=== PATIENT | male | born 1990 | race Caucasian/White ===

== ENCOUNTER 2017-03-17 10:37 | Emergency (ER) | payer OTHER ==
[2017-03-17 10:43] VITALS: BP 122/79
--- NOTE | 2017-03-17 11:38 | ED Physician Documentation ---
PD HPI BACK INJURY - Stated complaint Stated Complaint: BACK PX - History obtained from History obtained from: Patient - History of Present Illness Location: Right Type of injury: Twist (he reached out for light object and felt pain right medial scapular area. Did catch his breath at the time as it hurt to breath. Hurting to move arm and shoulder still.) Timing - onset: Yesterday Timing - details: Abrupt onset, Still present Quality: Pain, Sharp Improved by: Rest Worsened by: Moving Associated symptoms: Other (no cough nor URI symptoms). No: Fever, Weakness, Numbness Similar symptoms before: Has not had sx before Recently seen: Not recently seen Review of Systems Constitutional: denies: Fever, Chills Nose: denies: Rhinorrhea / runny nose, Congestion Throat: denies: Sore throat Cardiac: denies: Chest pain / pressure, Palpitations Respiratory: denies: Dyspnea, Cough Skin: denies: Rash, Lesions Musculoskeletal: reports: Back pain. denies: Neck pain PD PAST MEDICAL HISTORY - Past Medical History Past Medical History: Yes Cardiovascular: None Respiratory: None Psych: Depression, Anxiety - Past Surgical History Past Surgical History: Yes - Present Medications Home Medications: Ambulatory Orders Medication Instructions Recorded Confirmed Citalopram [CeleXA] 0 mg PO DAILY 03/17/17 03/17/17 Dexamethasone [Decadron] 4 mg PO DAILY #5 tablet 03/17/17 Ibuprofen [Motrin] 600 mg PO TID #20 tab 03/17/17 Methocarbamol [Robaxin] 500 mg PO Q6H PRN #25 tablet 03/17/17 Tramadol HCl 50 mg PO Q6H PRN #20 tablet 03/17/17 Trazodone HCl 0 mg PO DAILY 03/17/17 03/17/17 - Allergies Allergies/Adverse Reactions: Allergies Allergy/AdvReac Type Severity Reaction Status Date / Time No Known Drug Allergies Allergy Verified 03/17/17 10:42 - Social History Does the pt smoke?: No Smoking Status: Never smoker - Immunizations Immunizations are current?: Yes PD ED PE NORMAL - Vitals Vital signs reviewed: Yes - General General: Alert and oriented X 3, No acute distress, Well developed/nourished - HEENT HEENT: Ears normal, Pharynx benign - Neck Neck: Supple, no meningeal sign, No adenopathy - Cardiac Cardiac: RRR, No murmur - Respiratory Respiratory: Clear bilaterally, Other (tender medial scapular area without rash nor sores. ) - Abdomen Abdomen: Soft, Non tender - Derm Derm: Normal color, Warm and dry, No rash Results - Vitals Vitals: Oxygen O2 Source Room air - Rads (name of study) chest Radiology: Prelim report reviewed, EMP read contemporaneously (no acute process) PD MEDICAL DECISION MAKING - ED course Complexity details: reviewed results, considered differential, d/w patient Departure - Departure Disposition: Home, Self Care Clinical Impression: Thoracic myofascial strain Qualifiers: Encounter type: initial encounter Qualified Code(s): S29.019A - Strain of muscle and tendon of unspecified wall of thorax, initial encounter Condition: Stable Record reviewed to determine appropriate education?: Yes Instructions: ED Sprain Thoracic Spine Follow-Up: MILTON Chahal [Provider Group] Prescriptions: Dexamethasone [Decadron] 4 mg PO DAILY #5 tablet Ibuprofen [Motrin] 600 mg PO TID #20 tab Methocarbamol [Robaxin] 500 mg PO Q6H PRN #25 tablet PRN Reason: Spasms Tramadol HCl 50 mg PO Q6H PRN #20 tablet PRN Reason: Pain Comments: Limited use of the shoulder girdle and upper back, which means minimal lifting, push pull, overhead reaching for several days due to presumed muscle pain. Your x-ray appears normal. Resume this is a muscle strain with the pain. Recheck if other symptoms develop. Otherwise use ibuprofen 2-3 times a day and Decadron daily for 5 days for inflammation. Add Robaxin if needed for spasms and stiffness. Add Tylenol or tramadol or both if needed for pains unrelieved by the NSAIDs. Follow-up with your primary care in 2-3 days if not better. Forms: Activity restrictions Discharge Date/Time: 03/17/17 13:09
[2017-03-17] MEDS ORDERED: ACETAMINOPHEN 325 MG TABLET PO STA (12:05)
[2017-03-17] MEDS: IBUPROFEN 600 MG TABLET PO STA ×2 (12:09)
--- NOTE | 2017-03-17 12:32 | XRAY Preliminary Report ---
Exam: XR CHEST 2 VIEW PA/LAT IMPRESSION: Normal 2-view chest radiography. [facility] SITE ID: [id number]
--- NOTE | 2017-03-17 12:32 | XRAY Report ---
EXAM: CHEST RADIOGRAPHY EXAM DATE: 03/17/2017 12:15 PM. CLINICAL HISTORY: Right scapular pain with breathing. COMPARISON: None. TECHNIQUE: 2 views. FINDINGS: Lungs/Pleura: No focal opacities evident. No pleural effusion. No pneumothorax. Normal volumes. Mediastinum: Heart and mediastinal contours are unremarkable. Other: None. IMPRESSION: Normal 2-view chest radiography. [facility] Referring Provider Line: [phone] SITE ID: [id number]
== END 2017-03-17 13:09 | disposition home or self-care (01) ==
LOC: ED 10:37
DX: S29.019A Strain of muscle and tendon of unspecified wall of thorax, initial encounter (principal); X50.9XXA Other and unspecified overexertion or strenuous movements or postures, initial encounter
CPT/HCPCS: 71020; 99283; A9270